=== PATIENT | male | born 1970 | race Caucasian/White ===

== ENCOUNTER → 2021-02-25 10:30 | Outpatient (BNVA) | payer OTHER, SELFPAY | PROVIDERS: PCP Internal Medicine; Visit Provider Internal Medicine Endocrinology, Diabetes & Metabolism | DX: E13.9 Other specified diabetes mellitus without complications (principal); E78.5 Hyperlipidemia, unspecified | CPT/HCPCS: 82947 ==

== ENCOUNTER → 2021-12-27 09:01 | Outpatient (BNVA) | payer OTHER, SELFPAY | PROVIDERS: PCP Internal Medicine; Visit Provider Internal Medicine Endocrinology, Diabetes & Metabolism | DX: E13.9 Other specified diabetes mellitus without complications (principal); E78.5 Hyperlipidemia, unspecified; Z87.891 Personal history of nicotine dependence; Z79.82 Long term (current) use of aspirin; Z79.4 Long term (current) use of insulin; Z79.899 Other long term (current) drug therapy | CPT/HCPCS: 82947; 83036 ==

== ENCOUNTER → 2022-08-15 10:20 | Outpatient (BNVA) | payer OTHER, SELFPAY | PROVIDERS: PCP Internal Medicine; Visit Provider Internal Medicine Endocrinology, Diabetes & Metabolism | DX: E13.9 Other specified diabetes mellitus without complications (principal) | CPT/HCPCS: 82947; 83036 ==

== ENCOUNTER → 2023-02-10 09:58 | Outpatient (BNVA) | payer OTHER, SELFPAY | PROVIDERS: PCP Internal Medicine; Visit Provider Internal Medicine Endocrinology, Diabetes & Metabolism | DX: E13.9 Other specified diabetes mellitus without complications (principal); Z79.1 Long term (current) use of non-steroidal anti-inflammatories (NSAID) | CPT/HCPCS: 82947; 83036 ==

== ENCOUNTER 2023-08-11 08:10 | Outpatient (AMB) | payer OTHER, SELFPAY ==
--- NOTE | 2023-08-11 08:13 | MHC.OFFVIS ---
Intake Vital Signs 08/11/23 08:17 Height 5 ft 6 in Weight 189 lb 9.561 oz BMI 30.6 BP 100/68 Blood Pressure Location Rt brachial Position Sitting Pulse 64 Pulse Source Pulse Oximeter Intake Visit Reasons: f/u Type 1 DM-CONFIRMED Intake Note: Patient present today to follow up on Type 1 Diabetes Mellitus. Patient receives DME supplies through: [facility] Last Diabetic Eye exam: 07/09/2023 Last Podiatry Visit: Does not see a Elementary Librarian Random Glucose: 141 mg/dl HgA1C: 6.1% Sales Coordinator Required: No Accompanied by: Self / Same As Patient Allergies No Known Allergies [No Known Allergies*] Allergy (Verified 08/11/23 08:18) HPI HPI Comments History of Present Illness Details 53 yo male, today for follow-up visit, for DM 1 management He is feeling good, no new complaints. Patient personal continuous glucose monitor data from 07/29/23-08/11/23 showed an average blood sugar of 137mg per dL. Standard deviation 26mg/dL, He is 86% in target range . He has <1 % below target from that less than 1 is below 54 mg/dL 13% above target. His sensor download is a flat line his all the time within target range. Has not have any hypoglycemia during exercise. He was diagnosed with type 1 DM on 11/02/17. He is Toujeo 16 units, He is limiting his carbohydrates significantly. He has not seen significant hyperglycemia with meals. His still doing exercise every other day. He had dilated eye exam last exam 06/2023. Needs to make appt , no retinopathy. He denies nocturia, polyuria, polydipsia. His weight is stable. He has mild tingling in his feet after a prolonged cardiovascular exercise. 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 Mother Thyroid disease Diabetes mellitus Household Members: Spouse and Family Household Members Other:: , kids, cat Alcohol intake: current Alcohol intake frequency: does not drink Patient Tobacco Use Status: Former Tobacco user Physical Exam Vital Signs: Last Vital Signs Pulse 64 08/11/23 08:17 BP 100/68 08/11/23 08:17 BMI result Body Mass Index 30.6 Absence of Cushingoid features. Absence of acromegalic features. Neck exam reveals nl size thyroid about 15 gms. No thyroid nodules palpable. No carotid bruits present. Lungs CTA. Heart S1 S2, Reg R/R. No M/R/ G. Skin exam reveals absence of vitiligo or acanthosis nigricans. Abdominal exam reveals Soft NT/ND with NA BS. No organomegaly present. Extrem Other: Visual exam of foot performed. No ulcerations or open lesions. No onchomycosis, no callouses.Pulses 2 + distally. Sensation intact to monofilament exam. 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
[2023-08-11 08:17] VITALS: BP 100/68; PULSE 64; BMI 30.6
[2023-08-11 08:28] LABS: Glucose, Whole Blood 141 mg/dL (60-115)
== END 2023-08-11 08:51 | disposition home or self-care (01) ==
PROVIDERS: PCP Internal Medicine; Visit Provider Internal Medicine Endocrinology, Diabetes & Metabolism
DX: E13.9 Other specified diabetes mellitus without complications (principal)
CPT/HCPCS: 99214

== ENCOUNTER → 2023-08-11 08:10 | Outpatient (BNVA) | payer OTHER, SELFPAY | PROVIDERS: Visit Provider Internal Medicine Endocrinology, Diabetes & Metabolism | DX: E13.9 Other specified diabetes mellitus without complications (principal); Z79.4 Long term (current) use of insulin | CPT/HCPCS: 82947; 83036 ==

== ENCOUNTER 2024-02-06 08:03 | Outpatient (REF) | payer OTHER, SELFPAY ==
[2024-02-06 09:21] LABS: Anion Gap 9 (12-20); Blood Urea Nitrogen 22 mg/dL (9-16); Calcium 9.3 mg/dL (8.4-10.2); Carbon Dioxide 27 mmol/L (22-29); Chloride 107 mmol/L (96-108); Cholesterol 158 mg/dL (<200); Estimated Glomerular Filt Rate > 60; Glucose Random 109 mg/dL (60-115); HDL Cholesterol 44 mg/dL (>40); LDL Cholesterol Calculated 101 mg/dL (<100); Potassium 4.2 mmol/L (3.3-5.1); Sodium 139 mmol/L (135-145); Triglycerides 67 mg/dL (<150)
[2024-02-06 09:25] LABS: Creatinine Urine 131.42 mg/dL; Microalbum/Creatinine Ratio Ur 3.8 ug/mg cr (<30)
== END 2024-02-06 08:04 | disposition home or self-care (01) ==
LOC: HO.LAB 08:03
PROVIDERS: PCP Internal Medicine; Visit Provider Internal Medicine Endocrinology, Diabetes & Metabolism
DX: E13.9 Other specified diabetes mellitus without complications (principal)
CPT/HCPCS: 36415; 80048; 80061; 82043; 82570

== ENCOUNTER 2024-02-09 09:43 | Outpatient (AMB) | payer OTHER, SELFPAY ==
[2024-02-09 09:51] VITALS: BP 106/76; PULSE 56; BMI 30.1
--- NOTE | 2024-02-09 09:51 | A.OFFVIS_ITS ---
Vital Signs 02/09/24 09:51 Height 5 ft 6 in Weight 186 lb 8.177 oz BMI 30.1 BP 106/76 Blood Pressure Location Lt brachial Position Sitting Pulse 56 Pulse Source Pulse Oximeter Intake Visit Reasons: dm Intake Note: Patient present today to follow up on Type 1 Diabetes Mellitus. Patient receives DME supplies through: [place] Last Diabetic Eye exam: Within the last year, patient is unsure. Last Podiatry Visit: Doesn't have one. Random Glucose: 165 mg/dl HgA1C: 6.7% Engineering Team Supervisor Required: No Accompanied by: Self / Same As Patient Allergies No Known Allergies [No Known Allergies*] Allergy (Verified 02/09/24 09:54) Medication List - Last Reconciled 02/09/24 by Corky Pearce MD aspirin (Adult Low Dose Aspirin) 81 mg PO DAILY blood sugar diagnostic (Blood Glucose Test strips) 4x daily blood-glucose sensor (Dexcom G7 Sensor device) As directed change every 10 days glucagon 3 mg/actuation (Baqsimi) 3 mg intranasal ONCE insulin glargine U-300 conc (Toujeo SoloStar U-300 Insulin) 16 units (0.0533 mL) subcut BEDTIME 30 days lancets (OneTouch Delica Lancets) As directed 4 times day pen needle, diabetic (BD Qian 2nd Gen Pen Needle) once a day pravastatin 20 mg PO BEDTIME HPI Comments Details: 53 yo male, today for follow-up visit, for DM 1 management He is feeling good, no new complaints. Patient personal continuous glucose monitor data from 01/27/24-02/09/24 showed an average blood sugar of 139mg per dL. Standard deviation 23mg/dL, He is 81% in target range . He has <1 % below target from that less than 1 is below 54 mg/dL 18% above target. His sensor download is a flat line his all the time within target range. Has not have any hypoglycemia during exercise. He was diagnosed with type 1 DM on 11/02/17. He is Toujeo 16 units, He is limiting his carbohydrates significantly. He has not seen significant hyperglycemia with meals. His still doing exercise every other day. He had dilated eye exam last exam 06/2023. Needs to make appt , no retinopathy. He denies nocturia, polyuria, polydipsia. His weight is stable. He has mild tingling in his feet after a prolonged cardiovascular exercise. 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 Mother Thyroid disease Diabetes mellitus Social History Household Members: Spouse and Family Household Members Other:: , kids, cat Alcohol intake: current Alcohol intake frequency: does not drink Patient Tobacco Use Status: Former Tobacco user Physical Exam Vital Signs: Last Vital Signs Pulse 56 02/09/24 09:51 BP 106/76 02/09/24 09:51 BMI result Body Mass Index 30.1 Absence of Cushingoid features. Absence of acromegalic features. Neck exam reveals nl size thyroid about 15 gms. No thyroid nodules palpable. No carotid bruits present. Lungs CTA. Heart S1 S2, Reg R/R. No M/R/ G. Skin exam reveals absence of vitiligo or acanthosis nigricans. Abdominal exam reveals Soft NT/ND with NA BS. No organomegaly present. Extrem Other: Visual exam of foot performed. No ulcerations or open lesions. No onchomycosis, no callouses.Pulses 2 + distally. Sensation intact to monofilament exam. 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): Code(s): E13.9 - Other specified diabetes mellitus without complications Category: Medical Plan: This 53-year-old white male with a history of type 1 diabetes NOLVIA being treated with basal insulin with excellent glycemic control and no known microvascular or macrovascular complications Plan is to increase Toujeo to 20 units and add Humalog 5 units prior to meals as needed Orders: Orders AMB Hemoglobin A1c Today E13.9 - Other specified diabetes mellitus without complications, Z13.9 - Encounter for screening, unspecified Medications: New insulin lispro (Humalog KwikPen (U-100) Insulin) 5 units (0.05 mL) subcut TID 15 mL 4RF Changed From insulin glargine U-300 conc (Toujeo SoloStar U-300 Insulin) 16 units (0.0533 mL) subcut BEDTIME 30 days 4.5 mL 6RF E13.9 - Other specified diabetes mellitus without complications To insulin glargine U-300 conc (Toujeo SoloStar U-300 Insulin) 20 units (0.0667 mL) subcut BEDTIME 30 days 2.001 mL 6RF E13.9 - Other specified diabetes mellitus without complications Refilled blood-glucose sensor (Dexcom G7 Sensor device) As directed change every 10 days 3 ea 5RF Coding Level of Care Code Est Pt Level 4 (26524) Diagnoses 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
[2024-02-09 10:01] LABS: Glucose, Whole Blood 165 mg/dL (60-115)
== END 2024-02-09 10:17 | disposition home or self-care (01) ==
PROVIDERS: PCP Internal Medicine; Visit Provider Internal Medicine Endocrinology, Diabetes & Metabolism
DX: Z13.9 Encounter for screening, unspecified (principal); E13.9 Other specified diabetes mellitus without complications
CPT/HCPCS: 99214

== ENCOUNTER → 2024-02-09 09:43 | Outpatient (BNVA) | payer OTHER, SELFPAY | PROVIDERS: PCP Internal Medicine; Visit Provider Internal Medicine Endocrinology, Diabetes & Metabolism | DX: E13.9 Other specified diabetes mellitus without complications (principal); Z79.4 Long term (current) use of insulin | CPT/HCPCS: 82947; 83036 ==

== ENCOUNTER 2024-08-16 08:47 | Outpatient (AMB) | payer OTHER, SELFPAY ==
--- NOTE | 2024-08-16 08:48 | MHC.OFFVIS ---
Vital Signs 08/16/24 08:49 Height 5 ft 6 in Weight 195 lb 15.855 oz BMI 31.6 BP 110/82 Blood Pressure Location Rt brachial Position Sitting Pulse 77 Pulse Source Pulse Oximeter Intake Visit Reasons: DM-lvm Intake Note: Patient present today to follow up on Type 1 Diabetes Mellitus. Last Diabetic Eye exam: 08/08/24 Last Podiatry Visit: Does not see a Recreation Superintendent Random Glucose: 106 mg/dl HgA1C: 6.1% 08/16/24 Cleaning Attendant Required: No Accompanied by: Self / Same As Patient Allergies No Known Allergies [No Known Allergies*] Allergy (Verified 08/16/24 08:50) Medication List - Last Reconciled 08/16/24 by Corky Pearce MD aspirin (Adult Low Dose Aspirin) 81 mg PO DAILY blood sugar diagnostic (Blood Glucose Test strips) 4x daily blood-glucose sensor ([employer] G7 Sensor device) DIRECTED CHANGE EVERY 10 DAYS glucagon 3 mg/actuation (Baqsimi) 3 mg intranasal ONCE insulin glargine U-300 conc (Toujeo SoloStar U-300 Insulin) 20 units (0.0667 mL) subcut BEDTIME 30 days insulin lispro (Humalog KwikPen (U-100) Insulin) 5 units (0.05 mL) subcut TID lancets (Fourth Wall StudiosTouch Delica Lancets) As directed 4 times day pen needle, diabetic (BD Qian 2nd Gen Pen Needle) Injecting 4 times a day pravastatin 20 mg PO BEDTIME HPI Comments Details: 53 yo male, today for follow-up visit, for DM 1 management He is feeling good, no new complaints. Patient personal continuous glucose monitor data from 08/03/24-08/16/24 showed an average blood sugar of 128mg per dL. Standard deviation 26mg/dL, He is 91% in target range . He has 1 % below target from that less than 1 is below 54 mg/dL 8% above target. His sensor download is a flat line his all the time within target range. Has has rare hypoglycemia He was diagnosed with type 1 DM on 11/02/17. He is Toujeo 22 units, and Humalog 5 units TID PRN He is limiting his carbohydrates significantly. He has not seen significant hyperglycemia with meals. His still doing exercise every other day. He had dilated eye exam last exam last wk . , no retinopathy. He denies nocturia, polyuria, polydipsia. His weight is stable. He has mild tingling in his feet after a prolonged cardiovascular exercise. 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 Mother Thyroid disease Diabetes mellitus Social History Household Members: Spouse and Family Household Members Other:: , kids, cat Alcohol intake: current Alcohol intake frequency: does not drink Patient Tobacco Use Status: Former Tobacco user Physical Exam Vital Signs: Last Vital Signs Pulse 77 08/16/24 08:49 BP 110/82 08/16/24 08:49 BMI result Body Mass Index 31.6 Absence of Cushingoid features. Absence of acromegalic features. Neck exam reveals nl size thyroid about 15 gms. No thyroid nodules palpable. No carotid bruits present. Lungs CTA. Heart S1 S2, Reg R/R. No M/R/ G. Skin exam reveals absence of vitiligo or acanthosis nigricans. Abdominal exam reveals Soft NT/ND with NA BS. No organomegaly present. Extrem Other: Visual exam of foot performed. No ulcerations or open lesions. No onchomycosis, no callouses.Pulses 2 + distally. Sensation intact to monofilament exam. 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): Code(s): E13.9 - Other specified diabetes mellitus without complications Category: Medical Plan: This 54-year-old white male with a history of type 1 diabetes NOLVIA being treated with basal i- bolus nsulin with excellent glycemic control and no known microvascular or macrovascular complications Plan is to continue the current regimen Orders: Orders AMB Hemoglobin A1c Today E13.9 - Other specified diabetes mellitus without complications Basic Metabolic Panel 6 Months E13.9 - Other specified diabetes mellitus without complications Lipid Panel 6 Months E13.9 - Other specified diabetes mellitus without complications Microalbumin, Random (w Creat) 6 Months E13.9 - Other specified diabetes mellitus without complications Coding Level of Care Code Est Pt Level 4 (05743) Complex EM visit Add On G2211 Diagnoses 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
[2024-08-16 08:49] VITALS: BP 110/82; PULSE 77; BMI 31.6
[2024-08-16 09:00] LABS: Glucose, Whole Blood 106 mg/dL (60-115)
== END 2024-08-16 09:22 | disposition home or self-care (01) ==
PROVIDERS: PCP Internal Medicine; Visit Provider Internal Medicine Endocrinology, Diabetes & Metabolism
DX: E13.9 Other specified diabetes mellitus without complications (principal)
CPT/HCPCS: 99214

== ENCOUNTER → 2024-08-16 08:47 | Outpatient (BNVA) | payer OTHER, SELFPAY | PROVIDERS: PCP Internal Medicine; Visit Provider Internal Medicine Endocrinology, Diabetes & Metabolism | DX: E13.9 Other specified diabetes mellitus without complications (principal) | CPT/HCPCS: 82947; 83036 ==

== ENCOUNTER 2025-02-14 08:32 | Outpatient (AMB) | payer OTHER, SELFPAY ==
--- NOTE | 2025-02-14 08:33 | A.OFFVIS_ITS ---
Vital Signs 02/14/25 08:36 Height 5 ft 6 in Weight 197 lb 8.547 oz BMI 31.9 BP 116/80 Blood Pressure Location Rt brachial Position Sitting Pulse 65 Pulse Source Pulse Oximeter Pulse Oximetry (%) 97 Oxygen Delivery Method Room Air Intake Visit Reasons: f/u TYpe 1 NOLVIA Intake Note: Patient present today to follow up on Type 1 Diabetes Mellitus. Last Diabetic Eye exam: 07/07/24 Last Podiatry Visit: Does not see a Double Needle Operator Lockstitch Random Glucose:178 mg/dl HgA1C: 6.9% Accompanied by: Self / Same As Patient Allergies No Known Allergies [No Known Allergies*] Allergy (Verified 02/14/25 08:38) Medication List - Last Reconciled 02/14/25 by Corky Pearce MD aspirin (Adult Low Dose Aspirin) 81 mg PO DAILY blood sugar diagnostic (Blood Glucose Test strips) 4x daily blood-glucose sensor ([employer] G7 Sensor device) DIRECTED CHANGE EVERY 10 DAYS glucagon 3 mg/actuation (Baqsimi) 3 mg intranasal ONCE insulin glargine U-300 conc (Toujeo SoloStar U-300 Insulin) 20 units (0.0667 mL) subcut BEDTIME insulin lispro (Humalog KwikPen (U-100) Insulin) 5 units (0.05 mL) subcut TID lancets (SkillPixelsTouch Delica Lancets) As directed 4 times day pen needle, diabetic (BD Qian 2nd Gen Pen Needle) Injecting 4 times a day pravastatin 20 mg PO BEDTIME HPI Comments Details: 54 yo male, today for follow-up visit, for DM 1 management He is feeling good, no new complaints. Patient personal continuous glucose monitor data from 01/18/2025 to 01/31/2025 showed an average blood sugar of 138 mg per dL. Standard deviation 32 mg/dL, He is 84% in target range . He has 1 % below target from that is below 54 mg/dL 14% above target. His sensor download is a flat line his all the time within target range. Has has rare hypoglycemia He was diagnosed with type 1 DM on 11/02/17. He is Toujeo 20 units, and Humalog 5 units TID PRN He is limiting his carbohydrates significantly. He has not seen significant hyperglycemia with meals. His still doing exercise every other day. He had dilated eye exam last exam 06/2024 . , no retinopathy. He denies nocturia, polyuria, polydipsia. His weight is stable. He has mild tingling in his feet after a prolonged cardiovascular exercise. 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 Mother Thyroid disease Diabetes mellitus Social History Household Members: Spouse and Family Household Members Other:: , kids, cat Alcohol intake: current Alcohol intake frequency: does not drink Patient Tobacco Use Status: Former Tobacco user Physical Exam Vital Signs: Last Vital Signs Pulse 65 02/14/25 08:36 BP 116/80 02/14/25 08:36 Pulse Ox 97 02/14/25 08:36 Oxygen Delivery Method Room Air 02/14/25 08:36 BMI result Body Mass Index 31.9 Absence of Cushingoid features. Absence of acromegalic features. Neck exam reveals nl size thyroid about 15 gms. No thyroid nodules palpable. No carotid bruits present. Lungs CTA. Heart S1 S2, Reg R/R. No M/R/ G. Skin exam reveals absence of vitiligo or acanthosis nigricans. Abdominal exam reveals Soft NT/ND with NA BS. No organomegaly present. Extrem Other: Visual exam of foot performed. No ulcerations or open lesions. No onchomycosis, no callouses.Pulses 2 + distally. Sensation intact to monofilament exam. 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 Talked about the idea of using an insulin pump and perhaps scheduling an appointment with the pest control worker the patient wants to think about this further. 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
[2025-02-14 08:36] VITALS: BP 116/80; PULSE 65; O2SAT 97; BMI 31.9
[2025-02-14 08:49] LABS: Glucose, Whole Blood 178 mg/dL (60-115)
== END 2025-02-14 09:08 | disposition home or self-care (01) ==
LOC: HO.ENCR 08:32
PROVIDERS: PCP Internal Medicine; Visit Provider Internal Medicine Endocrinology, Diabetes & Metabolism
DX: Z13.9 Encounter for screening, unspecified (principal); E13.9 Other specified diabetes mellitus without complications
CPT/HCPCS: 99214

== ENCOUNTER → 2025-02-14 08:32 | Outpatient (BNVA) | payer OTHER, SELFPAY | PROVIDERS: PCP Internal Medicine; Visit Provider Internal Medicine Endocrinology, Diabetes & Metabolism | DX: E13.9 Other specified diabetes mellitus without complications (principal); E78.5 Hyperlipidemia, unspecified | CPT/HCPCS: 82947; 83036 ==

== ENCOUNTER 2025-08-17 08:03 | Outpatient (AMB) | payer OTHER, SELFPAY ==
--- NOTE | 2025-08-17 08:04 | A.OFFVIS_ITS ---
Vital Signs 08/17/25 08:07 Height 5 ft 6 in Weight 200 lb 9.93 oz BMI 32.4 BP 108/72 Blood Pressure Location Lt brachial Position Sitting Pulse 67 Pulse Source Pulse Oximeter Pulse Oximetry (%) 96 Oxygen Delivery Method Room Air Intake Visit Reasons: f/u TYpe 1 NOLVIA Intake Note: Patient present today to follow up on Type 1 Diabetes Mellitus. Last Diabetic Eye exam: 08/15/[address] [facility] Last Podiatry Visit: Does not see a Marketing Director Assisted Living Random Glucose: 126 mg/dl HgA1C: 6.6% 08/17/2025 [address] Landscape Architect Required: No Accompanied by: Self / Same As Patient Allergies No Known Allergies (No Known Allergies*) Allergy (Verified 08/17/25 08:08) HPI Comments Details: 55 yo male, today for follow-up visit, for DM 1 management He is feeling good, no new complaints. Patient personal continuous glucose monitor data from 08/04/2025 to 08/17/2025 showed an average blood sugar of 128 mg per dL. Standard deviation 26 mg/dL, He is 91% in target range . He has 1 % below target from that is below 54 mg/dL 8% above target. His sensor download is a flat line his all the time within target range. Has has rare hypoglycemia He was diagnosed with type 1 DM on 11/02/17. He is Toujeo 24 units, and Humalog 5 units TID PRN He is limiting his carbohydrates significantly. He has not seen significant hyperglycemia with meals. His still doing exercise every other day. He had dilated eye exam last exam 2 days ago . , no retinopathy. He denies nocturia, polyuria, polydipsia. His weight is stable. He has mild tingling in his feet after a prolonged cardiovascular exercise. 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 Mother Thyroid disease Diabetes mellitus Social History Household Members: Spouse and Family Household Members Other:: , kids, cat Alcohol intake: current Alcohol intake frequency: does not drink Patient Tobacco Use Status: Former Tobacco user Physical Exam Vital Signs: Last Vital Signs Pulse 67 08/17/25 08:07 BP 108/72 08/17/25 08:07 Pulse Ox 96 08/17/25 08:07 Oxygen Delivery Method Room Air 08/17/25 08:07 BMI result Body Mass Index 32.4 Absence of Cushingoid features. Absence of acromegalic features. Neck exam reveals nl size thyroid about 15 gms. No thyroid nodules palpable. No carotid bruits present. Lungs CTA. Heart S1 S2, Reg R/R. No M/R/ G. Skin exam reveals absence of vitiligo or acanthosis nigricans. Abdominal exam reveals Soft NT/ND with NA BS. No organomegaly present. Extrem Other: Visual exam of foot performed. No ulcerations or open lesions. No onchomycosis, no callouses.Pulses 2 + distally. Sensation intact to monofilament exam. 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 Talked about the idea of using an insulin pump and perhaps scheduling an appointment with the gambling counsellor the patient wants to think about this further. He will go for repeat lipid profile microalbumin to creatinine ratio . We also discussed the idea of a G LP 1 use but he is going to think about this and discuss it further in 6 months Orders: Orders AMB Hemoglobin A1c Today E13.9 - Other specified diabetes mellitus without complications Medications: Changed From pen needle, diabetic (BD Qian 2nd Gen Pen Needle) Injecting 4 times a day 500 ea 2RF E11.22 - Type 2 diabetes mellitus with diabetic chronic kidney disease, E11.65 - Type 2 diabetes mellitus with hyperglycemia To pen needle, diabetic Injecting 4 times a day 500 ea 2RF E11.22 - Type 2 diabetes mellitus with diabetic chronic kidney disease, E11.65 - Type 2 diabetes mellitus with hyperglycemia Refilled pravastatin 20 mg PO BEDTIME 90 tabs 1RF Coding Level of Care Code Complex visit Add On G2211 Diagnoses 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
[2025-08-17 08:07] VITALS: BP 108/72; PULSE 67; O2SAT 96; BMI 32.4
[2025-08-17 08:17] LABS: Glucose, Whole Blood 126 mg/dL (60-115)
== END 2025-08-17 08:34 | disposition home or self-care (01) ==
LOC: HO.ENCR 08:03
PROVIDERS: PCP Internal Medicine; Visit Provider Internal Medicine Endocrinology, Diabetes & Metabolism
DX: E13.9 Other specified diabetes mellitus without complications (principal)
CPT/HCPCS: 99213

== ENCOUNTER → 2025-08-17 08:03 | Outpatient (BNVA) | payer OTHER, SELFPAY | PROVIDERS: PCP Internal Medicine; Visit Provider Internal Medicine Endocrinology, Diabetes & Metabolism | DX: E13.9 Other specified diabetes mellitus without complications (principal); Z79.4 Long term (current) use of insulin | CPT/HCPCS: 82947; 83036 ==